=== PATIENT | female | born 1975 | race Caucasian/White ===

== ENCOUNTER 2024-05-27 07:52 | Day surgery (SDC) | payer BC ==
[2024-05-27] MEDS: Ringers Lactate 1,000 ML IV ONE (08:25)
[2024-05-27] MEDS ORDERED: propofoL 200 MG/20 ML VIAL IV ONE (09:26)
[2024-05-27 11:14] VITALS: TEMP 97.3
[2024-05-27 11:16] VITALS: O2SAT 100
[2024-05-27 11:18] VITALS: BP 139/75
== END 2024-05-27 10:35 | disposition home or self-care (01) ==
LOC: OR 07:52
PROVIDERS: ATTEND Internal Medicine Gastroenterology
PROC: 0DBP8ZX Excision of Rectum, Via Natural or Artificial Opening Endoscopic, Diagnostic (ICD-10-PCS; principal; 2024-05-27 09:15)
DX: Z12.11 Encounter for screening for malignant neoplasm of colon (principal); K62.1 Rectal polyp; R14.0 Abdominal distension (gaseous); K64.8 Other hemorrhoids; Z86.0100 Personal history of colon polyps, unspecified
CPT/HCPCS: 45380; 88305; J2704; J7120